=== PATIENT | female | born 1975 | race Caucasian/White ===

== ENCOUNTER 2021-02-03 08:59 | Emergency (ER) | payer OTHER ==
[2021-02-03 09:30] VITALS: BP 110/82; PULSE 72; TEMP 98.4; BMI 25.2
== END 2021-02-03 10:28 | disposition home or self-care (01) ==
LOC: JER 08:59
DX: S92.514A Nondisplaced fracture of proximal phalanx of right lesser toe(s), initial encounter for closed fracture (principal)
CPT/HCPCS: 73630-TC-RT-FY; 99283-25